=== PATIENT | male | born 1990 ===

== ENCOUNTER → 2020-09-30 | Outpatient (CLI) | payer OTHER ==
[2020-10-02 15:21] LABS: CORONAVIRUS (COVID19) CSH-NRL Negative (Negative)
== END | disposition home or self-care (01) ==
LOC: LAB 16:54 → LAB SHORT 16:54
PROVIDERS: Family Medicine
DX: Z20.822 Contact with and (suspected) exposure to COVID-19 (principal)
CPT/HCPCS: U0003